=== PATIENT | female | born 1955 | race Caucasian/White ===

== ENCOUNTER 2024-06-20 10:06 | Day surgery (SDC) | payer MEDICARE ==
[~2024-06-20] VITALS: Ht 165.1 cm; Wt 89.7 kg
[~2024-06-20 10:06] MED LIST: Lactated Ringer's 1,000 ML IV ONE; propofoL 50 ML IV ONE
[2024-06-20] MEDS ORDERED: LOVASTATIN40 MG (10:37)
[2024-06-20] MEDS ORDERED: BREYNA 160-4.10.3 GM (10:38)
[2024-06-20] MEDS ORDERED: LOSARTAN 100 MG (10:38)
[2024-06-20] MEDS ORDERED: ALBU2.5V5 (10:39)
[2024-06-20] MEDS ORDERED: AMLO5 (10:39)
[2024-06-20] MEDS ORDERED: ALBU90OI (10:40)
[2024-06-20] MEDS ORDERED: Lactated Ringer's 1,000 ML IV ONE (11:08)
[2024-06-20 12:43] VITALS: BP 114/66
== END 2024-06-20 12:35 | disposition home or self-care (01) ==
LOC: ORSCSDS 10:06
DX: Z12.11 Encounter for screening for malignant neoplasm of colon (principal); Z86.0101 Personal history of adenomatous and serrated colon polyps; K57.30 Diverticulosis of large intestine without perforation or abscess without bleeding; D12.4 Benign neoplasm of descending colon; D12.5 Benign neoplasm of sigmoid colon; K64.8 Other hemorrhoids; F32.A Depression, unspecified; E78.5 Hyperlipidemia, unspecified; I10 Essential (primary) hypertension; F17.210 Nicotine dependence, cigarettes, uncomplicated; Z79.899 Other long term (current) drug therapy
CPT/HCPCS: 88305; J2704; J7120